=== PATIENT | male | born 1975 | race Caucasian/White ===

== ENCOUNTER 2021-01-17 18:51 | Emergency (ER) | payer SELFPAY ==
[~2021-01-17] VITALS: Ht 172.7 cm; Wt 68.0 kg
[2021-01-17 18:53] VITALS: BP 133/79
== END 2021-01-17 19:02 | disposition left against medical advice (07) ==
LOC: ER 18:54
DX: Z76.0 Encounter for issue of repeat prescription (principal); Z53.21 Procedure and treatment not carried out due to patient leaving prior to being seen by health care provider